=== PATIENT | male | born 1990 | race Caucasian/White ===

== ENCOUNTER 2017-12-20 11:56 | Emergency (ER) | payer OTHER ==
[2017-12-20 12:11] VITALS: BP 177/100; PULSE 109; RESP 20; TEMP 98.3; O2SAT 99
--- NOTE | 2017-12-20 12:31 | PD ---
HPI Chief Complaint: Cardiac Complaint Time Seen by Provider: 12:26 Travel History International Travel<30 days: No Contact w/Intl Traveler<30days: No Traveled to known affect area: No History of Present Illness HPI Patient 27-year-old male smoker presents emergency department for evaluation of chest discomfort. Patient states he has noticed a burning in his chest over the past few weeks, he is tried some Pepto-Bismol without significant relief. He became concerned when it felt somewhat tighter in the center of his chest. No shortness of breath no radiation. He does not have a history of high blood pressure high cholesterol, no family history of early heart disease. No history of diabetes. He states symptoms for the past week, worsening last night , associated signs and symptoms in context as above. He also endorses an occasional dry cough, denies any fevers, denies any illicit substance use. PFSH Past Medical History Medical History: Denies Significant Hx Past Surgical History Surgical History: No Previous Surgery Social History Alcohol Use: No Tobacco Use: Yes Substance Use: No Allergies-Medications Reported Meds & Prescriptions Reported Meds & Active Scripts Active Pepcid (Famotidine) 40 Mg Tab 40 Mg PO HS Review of Systems Except as stated in HPI: all other systems reviewed are Neg Physical Exam Narrative GENERAL: Well-developed well-nourished no obvious SKIN: Focused skin assessment warm/dry. HEAD: Atraumatic. Normocephalic. EYES: Pupils equal and round. No scleral icterus. No injection or drainage. ENT: No nasal bleeding or discharge. Mucous membranes pink and moist. Exhibits an occasional dry cough NECK: Trachea midline. No JVD. CARDIOVASCULAR: Regular rate and rhythm. No murmur appreciated. 2+ bilateral equal pulses in all 4 extremities. RESPIRATORY: No accessory muscle use. Clear to auscultation. Breath sounds equal bilaterally. GASTROINTESTINAL: Abdomen soft, non-tender, nondistended. Hepatic and splenic margins not palpable. MUSCULOSKELETAL: No obvious deformities. No clubbing. No cyanosis. No edema. NEUROLOGICAL: Awake and alert. No obvious cranial nerve deficits. Motor grossly within normal limits. Normal speech. PSYCHIATRIC: Appropriate mood and affect; insight and judgment normal. Data Data Last Documented VS Vital Signs Date Time Temp Pulse Resp B/P (MAP) Pulse Ox O2 Delivery O2 Flow Rate FiO2 12/20/17 12:11 98.3 109 20 177/100 (125) 99 Orders Orders Chest, Pa & Lat (12/20/17 ) Electrocardiogram (12/20/17 ) Ed Discharge Order (12/20/17 13:22) [facility] Medical Decision Making Medical Screen Exam Complete: Yes Emergency Medical Condition: Yes Differential Diagnosis Bronchitis, pneumonia, ACS highly unlikely, [place], smoking status, GERD Narrative Course Patient room to the emergency department, EKG and chest x-ray negative. Discussed with the patient that given his symptoms of the burning sensation and cough and now with some tightness I think that the more likely cause of his symptoms esophageal, at this time the patient is deemed to be low risk for cardiac etiology and I think he is stable to follow-up with an outpatient physician. I recommended symptomatic management, discussed that if chest tightness should worsen or not improve patient to return to the emergency department. Discussed with him at length smoking cessation of smoking has many adverse health outcomes including heart disease and lung disease as well as cancers . Diagnosis Primary Impression: Chest pain with low risk for cardiac etiology Referrals: [facility] Patient Instructions: Chest Pain (DC), Gastroesophageal Reflux Disease (DC), General Instructions Med/Other Pt SpecificInfo: Prescription(s) given Scripts Famotidine (Pepcid) 40 Mg Tab 40 MG PO HS, #30 TAB 0 Refills Prov: Apollo Retana MD 12/20/17 Disposition: 01 DISCHARGE HOME Condition: Stable Apollo Retana MD Dec 20, 2017 12:31
--- NOTE | 2017-12-20 12:59 | RADRPT ---
EXAM DATE/TIME: 12/20/2017 12:47 [facility] COMPARISON: No previous studies available for comparison. INDICATIONS : Chest pain. MEDICAL HISTORY : None. SURGICAL HISTORY : None. ENCOUNTER: Initial ACUITY: 3 days PAIN SCORE: 5/10 LOCATION: middle chest FINDINGS: PA and lateral views of the chest demonstrate the lungs to be symmetrically aerated without evidence of mass, infiltrate or effusion. The cardiomediastinal contours are unremarkable. Osseous structure s are intact. CONCLUSION: Normal examination. Iftikhar Araujo MD on December 20, 2017 at 12:56 Board Certified Radiologist. This report was verified electronically.
[2017-12-20] MEDS ORDERED: FAMO1TAB73 PO (13:21)
--- NOTE | 2017-12-21 16:16 | EKG ---
Date Performed: 12/20/2017 Time Performed: 13:05:31 PTAGE: 27 years EKG: Sinus rhythm WITH SINUS ARRHYTHMIA NORMAL ECG NO PREVIOUS TRACING DOCTOR: Aurelio Tucker Interpretating Date/Time 12/21/2017 16:14:21
== END 2017-12-20 14:19 | disposition home or self-care (01) ==
LOC: NEPD 11:56
DX: R07.9 Chest pain, unspecified (principal); R05 Cough; Z72.0 Tobacco use
CPT/HCPCS: 71046; 93005; 99284